=== PATIENT | male | born 1985 | race Caucasian/White ===

== ENCOUNTER 2018-03-14 05:10 | Emergency (ER) | payer OTHER ==
[~2018-03-14] VITALS: Ht 175.3 cm; Wt 79.4 kg
[~2018-03-14 05:10] MED LIST: ATIVAN1 MG PO; NALTREXONE HCL50 MG PO; NOHOMEMEDICATIONS; THIAMINE HCL100 MG PO; TRINATE TABLET1 TAB PO; ZOLOFT50 MG PO
[2018-03-14] MEDS ORDERED: PROZAC20 MG PO (05:19)
[2018-03-14] MEDS ORDERED: CLONAZEPAM 0.50.5 M1 PO (05:19)
[2018-03-14 06:12] LABS: ABSOLUTE NEUTROPHILS 6.1 thou/uL (1.4-8.2); BASOPHILS 0.3 % (0.0-2.0); EOSINOPHILS 0.1 % (0.0-3.0); HEMATOCRIT 49.8 % (42.0-52.0); HEMOGLOBIN 17.5 gm/dL (14.0-18.0); LYMPHOCYTES 34.3 % (24.0-44.0); MCH 31.4 pg (26.0-34.0); MCHC 35.2 g/dL (28.0-37.0); MCV 89.3 fL (80.0-100.0); MONOCYTES 5.2 % (1.0-8.0); PLATELET COUNT 300 thou/uL (150-400); POLYS 60.1 % (36.0-66.0); RBC 5.57 mil/uL (4.50-6.00); RDW 12.9 % (10.5-14.5); WBC 10.1 thou/uL (4.0-11.0)
[2018-03-14 06:15] LABS: CALCIUM 8.6 mg/dL (8.5-10.1); CREATININE 0.9 mg/dL (0.7-1.3)
[2018-03-14 06:16] LABS: POTASSIUM 4.4 mmol/L (3.5-5.1)
[2018-03-14] MEDS ORDERED: XANAX 0.5 MG0.5 MG PO (06:30)
== END 2018-03-14 08:07 | disposition home or self-care (01) ==
LOC: ER 05:10
PROVIDERS: Emergency Medicine
DX: F41.9 Anxiety disorder, unspecified (principal); F10.10 Alcohol abuse, uncomplicated; F17.210 Nicotine dependence, cigarettes, uncomplicated